=== PATIENT | female | born 1960 | race Caucasian/White ===

== ENCOUNTER 2016-05-05 08:04 | Emergency (ER) | payer OTHER ==
[~2016-05-05] VITALS: Ht 162.6 cm; Wt 90.7 kg
[2016-05-05] MEDS ORDERED: JARDIANCE25 MG PO (08:26)
[2016-05-05] MEDS ORDERED: ATORVASTATIN CA10 M1 PO (08:27)
[2016-05-05] MEDS ORDERED: OMEPRAZOLE20 MG PO (08:27)
[2016-05-05] MEDS ORDERED: MONTELUKAST SOD10 MG PO (08:28)
[2016-05-05] MEDS ORDERED: METFORMIN ER500 MG PO (08:29)
[2016-05-05] MEDS ORDERED: PROAIR HFA0.09 MG/AC IH (08:30)
--- NOTE | 2016-05-05 08:31 | Emergency Room Report ---
History of Present Illness Time Seen by MD [email or web address] Presenting Problem in Triage Pt arrived:Wheelchair Presenting Problem:c/o " the world is spinning". woke up at 0300 with weird sounds in left ear and at 0400 with the spinning. had simialr episode a few years ago and treated for inner ear problems. 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 N Clinical Suspician of Infection? N Mental Status: 1 - Regular (Normal Baseline) Sepsis Risk:Low Sepsis Risk Have you (or family members/close friends) recently traveled outside the [place]? N If Yes, where/when: Have you had exposure to infectious disease within the past month? N TB? Other? Specify: Comment The patient complains of vertigo, vomiting, a rushing sound in her ears, and a RIGHT earache that started at 3 AM. She vomited 3 times. She has also had dry heaves. She had the same symptoms 5 years ago and was treated for vertigo. She says she also has a history of an ear infection on the RIGHT side a few months ago which LEFT her with hearing loss in her right ear. She is seeing Dr. Peoples and had a hearing test done a week ago that showed some nerve damage in her right ear. No visual disturbance, double vision, or loss of vision. No numbness or weakness of the extremities. ALLERGIES Coded Allergies: erythromycin base (04/08/15) Home Medications Reported Medications Empagliflozin (Jardiance) 25 MG PO DAILY #30 Atorvastatin Calcium 10 MG PO DAILY #30 Omeprazole (Omeprazole 20MG) 20 MG PO DAILY #30 Montelukast Sodium 10 MG PO DAILY #90 METFORMIN HCL (Metformin HCl ER) 2,000 MG PO DAILY #120 Albuterol Sulfate (Proair Hfa) 1 PUFF IH Q6HP PRN asthma #8 History Medical History General CAD? No Angina: No AK: No Hypertension? No Hyperlipidemia? Yes CHF? No DVT? No PE? No COPD? No Asthma? Yes Anemia? No GERD? No Gastric ulcers? No GI Bleed? No Hernia? No Thyroid Problems? No Hypothyroidism? No CVA? No Seizures? No Diabetes? Yes Insulin Dependent: No Insulin Pump: No Home FSBS? No Renal Insuffiency? No End Stage Renal Disease? No UTI? No Stones? No BPH? No GB Disease: No Nephritic Syndrome? No Asplenia? No Hepatitis? No Sickle Cell Disease? No Arthritis? No Migraines? No Cataracts? No Glaucoma? No MRSA? No HIV? No TB? No Anxiety? Yes Depression? No Cancer? No More? 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 Gastrointestinal nausea, vomiting Psychiatric/Neurological denies headache, denies numbness, denies weakness Physical Exam Vital Signs Vital Signs Date Time Temp Pulse Resp B/P Pulse O2 O2 Flow FiO2 Ox Delivery Rate 05/05 0854 65 18 121/94 98 05/05 0812 97.1 60 18 156/100 90 General Appearance normal appearance, WD/WN Eye Exam - bilateral eye normal exam, bilateral eye PERRL, bilateral eye EOMI Comment Lateral nystagmus on RIGHT lateral gaze only. No vertical or rotary nystagmus. Ear, Nose, Throat erythema of RIGHT tympanic membrane Neck normal inspection, non-tender, supple, full range of motion Respiratory Status Yes: trachea midline, chest symmetrical, non tender chest. No: respiratory distress. Lung Sounds bilateral: normal breath sounds, lungs clear. 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 No Results/Orders Current Medication Orders Sig/Lou Start time Last Medication Dose Route Stop Time Status Admin Ondansetron HCl 0 .STK-MED ONE 05/05 848 DC .ROUTE Amoxicillin/ 0 .STK-MED ONE 05/06 847 DC Clavulanate Potassium PO Meclizine HCl 0 .STK-MED ONE 05/06 847 DC .ROUTE Amoxicillin/ 500 MG ONCE ONE 05/05 844 DC 05/05 Clavulanate Potassium PO 05/05 845 0850 Meclizine HCl 50 MG ONCE ONE 05/05 844 DC / PO 05/06 0746 0850 Ondansetron HCl 4 MG ONCE ONE 05/05 844 DC / PO 05/06 0746 0851 Progress - 9:15 AM: The patient is feeling better. Not nauseated. Able to ambulate. Departure Departure Disposition DC Home or Self Care(routine) Clinical Impression Primary Impression: Peripheral vertigo Qualifiers: Laterality: right Qualified Code: H81.391 - Other peripheral vertigo, right ear Secondary Impressions: Right otitis media Qualifiers: Otitis media type: unspecified Chronicity: unspecified Qualified Code: H66.91 - Otitis media, unspecified, right ear Condition STABLE Referrals Gera SEGURA,[place] (Family) Patient Instructions DI for Otitis Media (Middle Ear Infection)-Child, DI for Vertigo Additional Instructions Follow-up with your primary care physician within 2-3 days for recheck. Return to the emergency department if uncontrollable vomiting or vertigo, unable to walk, loss of vision or double vision, weakness of arm or leg. Prescriptions Current Visit Scripts MECLIZINE HCL (ANTIVERT 25MG (generic)) 25 MG PO TID #30 TAB Ondansetron (Zofran 4MG Odt) 4 MG PO Q8HP PRN NAUSEA AND VOMITING #10 ODT Amoxicillin/Potassium Clav (Augmentin 875-125 Tablet) 1 EACH PO BID #20 TAB take as prescribed ED Critical Care Critical Care No at [id number]
[2016-05-05] MEDS ORDERED: AUGMENTIN 875-1 EACH PO (09:17)
[2016-05-05] MEDS ORDERED: MECLIZINE HYDRO25 M2 PO (09:17)
[2016-05-05] MEDS ORDERED: ZOFRAN ODT4 MG PO (09:17)
[2016-05-05 09:19] VITALS: BP 121/94
== END 2016-05-05 09:26 | disposition home or self-care (01) ==
LOC: ER 08:04
DX: H81.391 Other peripheral vertigo, right ear (principal); H66.91 Otitis media, unspecified, right ear; E11.9 Type 2 diabetes mellitus without complications; Z87.891 Personal history of nicotine dependence; F41.9 Anxiety disorder, unspecified

== ENCOUNTER → 2016-12-04 | Outpatient (CLI) | payer OTHER ==
[~2016-12-04] MED LIST: ATORVASTATIN CA10 M1 PO; AUGMENTIN 875-1 EACH PO; JARDIANCE25 MG PO; KEFLEX 500MG.500 MG PO; MECLIZINE HYDRO25 M2 PO; METFORMIN ER500 MG PO; MONTELUKAST SOD10 MG PO; OMEPRAZOLE20 MG PO; PROAIR HFA0.09 MG/AC IH; ZOFRAN ODT4 MG PO
--- NOTE | 2016-12-15 10:59 | RADIOLOGY REPORT PS360 ---
DIG MAMM-SCREEN SHIVAM W/CAD CAD Screening COMPARISON: None, patient had previous mammograms at the [facility] and they've not arrived as yet for review. INDICATION: There is a history of breast cancer patient's 2 maternal aunts and one paternal aunt TECHNIQUE: Standard CC and MLO images were obtained. R2 CAD reviewed. FINDINGS: The breasts are composed primarily of fat with minimal fibroglandular densities in the subareolar regions bilaterally. There are few benign-appearing calcifications throughout both breasts. There is no suspicious lesion and there are no suspicious microcalcifications. IMPRESSION: Minimal fibroglandular densities are background of fatty breast parenchyma, recommend yearly follow-up BI-RADS CATEGORY: 2_Benign RECOMMENDED FOLLOWUP: 12M 12 MONTH FOLLOW-UP (A letter has been sent to the patient regarding results of the study.)
== END ==
LOC: RAD 11-20 16:00
DX: Z12.31 Encounter for screening mammogram for malignant neoplasm of breast (principal)
CPT/HCPCS: G0202